=== PATIENT | male | born 1990 | race Caucasian/White ===

== ENCOUNTER 2022-12-13 21:48 | Emergency (ER) | payer BC ==
--- NOTE | 2022-12-13 22:23 | ERPHSYRPT ---
- History of Present Illness Time Seen by Provider: 12/13/22 22:17 Source: patient, family Exam Limitations: no limitations Patient Subjective Stated Complaint: pt states that "2 nights ago while changing my 2 year old's diaper he kicked and his heel came down on my left testicle" Triage Nursing Assessment: pt ambulated to room 6 independently with slow steady gait, resp even and unlabored, pt is alert and oriented times three, able to move all extremities, speaks in complete sentences. he reports left testicle swelling and pain rated 8/10 when not moving and 10/10 when he is moving that he describes as a constant ache and pressure. he reports when the pain is at it's worst he also has left lower abd ache/ pressure but not unless pain is severe (states it is the same feeling he has had in the past when hit in groin area). denies nausea, numbness, or tingling. very slight edema noted to left scrotal area, no deformity, open area, or wound noted. testicle is soft and moveble within scrotum. Physician History: confirmed hx independently in ER with family. Pt had mild trauma to left testicle 3 days ago and has had persisting tenderness and now increased pain today, Mild erythema and swelling left testicle. No discharge or urinary symptoms. No hernia on exam. Abd soft nontender without peritoneal signs or masses. Discussed US and UA and CBC with pt and family including risk/benefits and they wish to proceed - results discussed. Timing/Duration: day(s) Activites at Onset: physical activity Quality: stabbing, throbbing Onset Location: left testicle Pain Radiation: scrotal Severity of Pain-Max: moderate Severity of Pain-Current: moderate Modifying Factors: Improves With: exercise, movement Associated Symptoms: swelling Prior abdominal problems: recent trauma Sexual intercourse history: non-contributory Allergies/Adverse Reactions: No Known Drug Allergies Allergy (Unverified 12/13/22 21:58) Home Medications: Atorvastatin Calcium [Lipitor 40Mg] 40 mg PO HS 12/13/22 [History] Hx Tetanus, Diphtheria Vaccination/Date Given: No Hx Influenza Vaccination/Date Given: No Hx Pneumococcal Vaccination/Date Given: No Immunizations Up to Date: No Travel Risk - International Travel Have you traveled outside of the country in past 3 weeks: No - Coronavirus Screening Are you exhibiting any of the following symptoms?: No Close contact with a COVID-19 positive Pt in past 14-21 Days: No - Vaccine Status Have you recieved a Covid-19 vaccination: No - Past Medical History Pertinent Past Medical History: Yes Neurological History: No Pertinent History ENT History: No Pertinent History Cardiac History: High Cholesterol Respiratory History: No Pertinent History Endocrine Medical History: No Pertinent History Musculoskeletal History: No Pertinent History GI Medical History: No Pertinent History History: No Pertinent History Psycho-Social History: No Pertinent History Male Reproductive Disorders: No Pertinent History - Past Surgical History Past Surgical History: No Neuro Surgical History: No Pertinent History Cardiac: No Pertinent History Respiratory: No Pertinent History Gastrointestinal: No Pertinent History Genitourinary: No Pertinent History Musculoskeletal: No Pertinent History Male Surgical History: No Pertinent History - Social History Smoking Status: Current every day smoker How long have you smoked: 10yrs Exposure to second hand smoke: Yes Drug Use: none Patient Lives Alone: No - Review of Systems Constitutional: No Fever, No Chills Eyes: No Symptoms Ears, Nose, & Throat: No Symptoms Respiratory: No Cough, No Dyspnea Cardiac: No Chest Pain, No Edema, No Syncope Abdominal/Gastrointestinal: No Abdominal Pain, No Nausea, No Vomiting, No Diarrhea Genitourinary Symptoms: Testicle Pain, No Dysuria Musculoskeletal: No Back Pain, No Neck Pain Skin: No Rash Neurological: No Dizziness, No Focal Weakness, No Sensory Changes Psychological: No Symptoms Endocrine: No Symptoms Hematologic/Lymphatic: No Symptoms Immunological/Allergic: No Symptoms All Other Systems: Reviewed and Negative - Nursing Vital Signs Nursing Vital Signs: Initial Vital Signs Temperature 97.7 F 12/13/22 22:01 Pulse Rate 83 12/13/22 22:01 Respiratory Rate 16 12/13/22 22:01 Blood Pressure 135/74 12/13/22 22:01 O2 Sat by Pulse Oximetry 96 12/13/22 22:01 Pain Scale Pain Intensity 8 - Physical Exam General Appearance: no apparent distress, alert Eye Exam: PERRL/EOMI Ears, Nose, Throat Exam: pharynx normal, moist mucous membranes Neck Exam: normal inspection, supple Respiratory Exam: normal breath sounds, lungs clear Cardiovascular Exam: regular rate/rhythm, No edema Gastrointestinal/Abdomen Exam: soft, No tenderness Male Genital Exam: scrotum tenderness (L), testicular tenderness (L) Back Exam: normal inspection, No CVA tenderness Extremity Exam: normal inspection, normal range of motion, No pedal edema Neurologic Exam: alert, oriented x 3, cooperative, sensation nml, No motor deficits Skin Exam: normal color, warm, dry, No rash SpO2 Interpretation: normal SpO2: 96 O2 Delivery: Room Air - Course Nursing assessment & vital signs reviewed: Yes - Radiology Ultrasound Exam Scrotal Ultrasound: negative, No Torsion/Nml Flow, Other (no hematoma) Ordered Tests: Active Orders 24 hr Category Date Time Status TESTICLE [US] Stat Exams 12/13/22 22:09 Taken CBC W DIFF Stat Lab 12/13/22 22:39 Completed Lactic Acid Stat Lab 12/13/22 22:40 Completed UA W/RFX UR CULTURE Stat Lab 12/13/22 23:16 Completed Medication Summary Generic Name Dose Route Start Last Admin Trade Name Freq PRN Reason Stop Dose Admin Hydrocodone Bitart/Acetaminophen 1 tablet 12/14/22 00:41 Hydrocodone/Acetamin 10-325 Mg Tablet PO 12/19/22 00:40 Q4H PRN PRN PAIN Discontinued Medications Generic Name Dose Route Start Last Admin Trade Name Freq PRN Reason Stop Dose Admin Hydrocodone Bitart/Acetaminophen 1 tablet 12/13/22 23:24 12/13/22 23:25 Hydrocodone/Acetamin 10-325 Mg Tablet PO 12/13/22 23:25 1 tablet STAT ONE Administration Hydrocodone Bitart/Acetaminophen Confirm 12/13/22 23:25 Hydrocodone/Acetamin 10-325 Mg Tablet Administered 12/13/22 23:26 Dose 1 tablet .ROUTE .STK-MED ONE Hydrocodone Bitart/Acetaminophen 1 tab 12/14/22 00:19 12/14/22 00:32 Hydrocodone/Apap 5/325 1 Tab Tablet PO 12/14/22 00:20 1 tab STAT ONE Administration Hydrocodone Bitart/Acetaminophen Confirm 12/14/22 00:30 Hydrocodone/Apap 5/325 1 Tab Tablet Administered 12/14/22 00:31 Dose 1 tab .ROUTE .STK-MED ONE Hydrocodone Bitart/Acetaminophen Confirm 12/14/22 00:30 Hydrocodone/Acetamin 10-325 Mg Tablet Administered 12/14/22 00:31 Dose 2 tablet .ROUTE .STK-MED ONE Ketorolac Tromethamine 60 mg 12/13/22 22:24 06/03/23 22:31 Ketorolac Tromethamine 30 Mg/Ml Inj IM 12/13/22 22:25 60 mg STAT ONE Administration Ketorolac Tromethamine Confirm 12/13/22 22:28 Ketorolac Tromethamine 30 Mg/Ml Inj Administered 12/13/22 22:29 Dose 60 mg .ROUTE .STK-MED ONE Lab/Rad Data: Laboratory Result Diagrams 12/13/22 22:39 Laboratory Results 12/13/22 12/13/22 12/13/22 Range/Units 23:16 22:40 22:39 WBC 11.9 H (4.0-10.5) x10^3/uL RBC 5.04 (4.1-5.6) x10^6/uL Hgb 15.0 (12.5-18.0) g/dL Hct 46.0 (42-50) % MCV 91.3 (78-100) fL MCH 29.8 (26-32) pg MCHC 32.6 (32-36) g/dL RDW 13.0 (11.5-14.0) % Plt Count 210 (150-450) x10^3/uL MPV 9.6 (7.5-11.0) fL Gran % 60.1 (36.0-66.0) % Immature Gran % (Auto) 0.3 (0.00-0.4) % Nucleat RBC Rel Count 0.0 (0.00-0.1) % Eos # (Auto) 0.21 (0-0.5) x10^3/uL Immature Gran # (Auto) 0.03 (0.00-0.03) x10^3u/L Absolute Lymphs (auto) 3.68 (1.0-4.6) x10^3/uL Absolute Monos (auto) 0.77 (0.0-1.3) x10^3/uL Absolute Nucleated RBC 0.00 (0.00-0.01) x10^3u/L Lymphocytes % 31.0 (24.0-44.0) % Monocytes % 6.5 (0.0-12.0) % Eosinophils % 1.8 (0.00-5.0) % Basophils % 0.3 (0.0-0.4) % Absolute Granulocytes 7.17 H (1.4-6.9) x10^3/uL Basophils # 0.03 (0-0.4) x10^3/uL Lactic Acid 0.8 (0.4-2.0) Urine Color Yellow (Yellow) Urine Appearance Clear (Clear) Urine pH 5.5 (4.6-8.0) Ur Specific [place] 1.020 (1.005-1.030) Urine Protein Negative (Negative) Urine Glucose (UA) Negative (Negative) mg/dL Urine Ketones Negative (Negative) Urine Blood Negative (Negative) Urine Nitrite Negative (Negative) Urine Bilirubin Negative (Negative) Urine Urobilinogen 0.2 (0.2) mg/dL Ur Leukocyte Esterase Negative (Negative) U Hyaline Cast (Auto) NONE SEEN (0-2) /LPF Urine Microscopic RBC 0-2 (0-5) /HPF Urine Microscopic WBC 0-2 (0-5) /HPF Ur Epithelial Cells None Seen (None Seen) /HPF Urine Bacteria None Seen (None Seen) /HPF Urine Culture Reflexed NO (NO) - Progress Progress: improved, re-examined Progress Note: 12/13/22 23:24 discussed risk/benefits of pain meds and pt and family wish to proceed. Toradol did not affect pain so going to hydrocodone after discussion with pt and family and they agree. 12/14/22 00:46 pt pain has improved greatly and he wishes DC withoutpt f/u now . Counseled pt/family regarding: lab results, diagnosis, need for follow-up, rad results Medical Desision Making - Independent Historian Additional History obtained from: Spouse - Discussion of managment Reviewed:: Test results, Need for additional workup - Diagnostic Testing Diagnostic test were ordered, analyzed, and reviewed by me: Yes Radiological Interpretation: Reviewed by me - Risk of complications The pt has a mod risk of morbidity or mortality based on: Need for prescription drug management - Departure Departure Disposition: Home Clinical Impression: left testicular pain after trauma Condition: Good Critical Care Time: No Referrals: CHANEL RODRIGUEZ [Primary Care Provider] - Follow up/PCP as directed Instructions: Testicular Injury, Testicular Torsion, Adult Additional Instructions: Although we did not find any problems on ultrasound and the scenario and findings are consistent with bruising after trauma , there still could be undet ected conditions evolving so follow-up with your for further examination and return meantime if not improving., fever, vomiting swelling or other concerns. We are including instruction on torsion although we did not find it so that you will know what to watch for just in case.
[2022-12-13] MEDS ORDERED: TORAdol 30 mg Injection IM ONE (22:24)
[2022-12-13] MEDS ORDERED: TORAdol 30 mg Injection ONE (22:28)
[2022-12-13 22:41] LABS: Absolute Neutrophil Ct (ANC) 7.17 x10^3/uL (1.4-6.9); BASOPHIL % 0.3 % (0.0-0.4); Basophil (Absolute #) 0.03 x10^3/uL (0-0.4); Eosinophil % 1.8 % (0.00-5.0); Eosinophil (Absolute #) 0.21 x10^3/uL (0-0.5); IMMATURE GRAN # 0.03 x10^3u/L (0.00-0.03); IMMATURE GRAN % 0.3 % (0.00-0.4); Lymphocyte (Absolute #) 3.68 x10^3/uL (1.0-4.6); Mean Cell Volume 91.3 fL (78-100); Mean Corpuscular Hemoglobin 29.8 pg (26-32); Mean Corpuscular Hgb Concent. 32.6 g/dL (32-36); Mean Platelet Volume 9.6 fL (7.5-11.0); Monocyte (Absolute #) 0.77 x10^3/uL (0.0-1.3); Monocytes % 6.5 % (0.0-12.0); Neutrophil % 60.1 % (36.0-66.0); Platelet Count 210 x10^3/uL (150-450); Red Blood Count 5.04 x10^6/uL (4.1-5.6); White Blood Count 11.9 x10^3/uL (4.0-10.5)
[2022-12-13] MEDS ORDERED: HYDROCODONE-ACETAMIN 10-325 MG PO ONE (23:24)
[2022-12-13] MEDS ORDERED: HYDROCODONE-ACETAMIN 10-325 MG ONE (23:25)
[2022-12-13 23:36] LABS: Appearance Clear (Clear); Bacteria None Seen /HPF (None Seen); Bilirubin Negative (Negative); Blood Negative (Negative); Epithelial Cells None Seen /HPF (None Seen); Glucose, Urine Negative (Negative); Hyaline Casts NONE SEEN /LPF (0-2); Ketones Negative (Negative); Leukocyte Esterase Negative (Negative); Nitrite Negative (Negative); Ph 5.5 (4.6-8.0); Protein,Urine Dip Negative (Negative); RBC 0-2 /HPF (0-5); Urobilinogen 0.2 mg/dL (0.2); WBC 0-2 /HPF (0-5)
[2022-12-13 23:37] LABS: ADD URINE CULTURE? NO (NO)
[2022-12-14] MEDS ORDERED: NORCO 5/325 MG PO ONE (00:19)
[2022-12-14] MEDS ORDERED: HYDROCODONE-ACETAMIN 10-325 MG ONE (00:30)
[2022-12-14] MEDS ORDERED: NORCO 5/325 MG ONE (00:30)
[2022-12-14] MEDS ORDERED: HYDROCODONE-ACETAMIN 10-325 MG PO PRN ×2 (00:41→00:47)
[2022-12-14 00:42] VITALS: BP 117/74; PULSE 68
[2022-12-14 00:51] VITALS: O2SAT 96
--- NOTE | 2022-12-14 08:12 | XRAY ---
Indication: Left testicle pain and swelling following trauma. Two-dimensional testicular sonogram performed. Comparison: None Both testicles are homogeneous in echogenicity. Right testicle measures 4.9 x 2.6 x 4.0 cm and the left measures 3.5 x 2.5 x 3.7 cm. Normal color perfusion bilaterally. Left and right epididymis are bilaterally symmetric. Tiny nonspecific bilateral hydroceles. No suspicious extratesticular mass. Impression: Tiny nonspecific bilateral hydroceles. Remaining testicular sonogram is negative. Comment: Preliminary report was given.
== END 2022-12-14 01:01 | disposition home or self-care (01) ==
LOC: ED 21:48 → EDBD 21:48 → ED 12-14 01:01
DX: N50.812 Left testicular pain (principal); E78.5 Hyperlipidemia, unspecified; Z79.899 Other long term (current) drug therapy; Z28.310 Unvaccinated for COVID-19; Z72.0 Tobacco use
CPT/HCPCS: 36415; 76870; 81001; 83605; 85025; 96372; 99283; J1885; A9270-GY